=== PATIENT | female | born 1985 | race Caucasian/White ===

== ENCOUNTER 2017-08-12 12:35 | Emergency (ER) | payer MEDICAID ==
[~2017-08-12] VITALS: Ht 153.7 cm; Wt 63.0 kg
[~2017-08-12 12:35] MED LIST: ONDA4TAB12 PO
[2017-08-12 13:34] LABS: CLARITY,URINE Clear (Clear); COLOR,URINE Yellow (Yellow); GLUCOSE, URINE Negative (Neg); KETONES,URINE Negative (Neg); LEUKOCYTE ESTERASE ,URINE Negative (Neg); NITRITES, URINE Negative (Neg); OCCULT BLOOD,URINE Negative (Neg); PH,URINE 6.5 (4.8-8.0); PROTEIN,URINE Negative (Neg); UROBILINOGEN,URINE 0.2 E.U/dL (0.2-1.0)
[2017-08-12 13:36] LABS: URINE HCG POSITIVE (NEG)
[2017-08-12 13:38] LABS: UA COLLECTION TYPE NON-SPECIFIED
[2017-08-12 16:41] VITALS: BP 148/70
== END 2017-08-12 16:42 | disposition home or self-care (01) ==
LOC: ER 12:35
DX: O26.891 Other specified pregnancy related conditions, first trimester (principal); R10.9 Unspecified abdominal pain; F15.90 Other stimulant use, unspecified, uncomplicated; Z3A.10 10 weeks gestation of pregnancy; Z79.899 Other long term (current) drug therapy
CPT/HCPCS: 36415; 76801; 81003; 81025; 84702; 99285

== ENCOUNTER 2018-05-26 10:49 | Emergency (ER) | payer MEDICAID ==
[~2018-05-26] VITALS: Ht 152.4 cm; Wt 85.0 kg
[2018-05-26 10:58] VITALS: BP 122/81
[2018-05-26] MEDS ORDERED: HYDR-4383 PO (13:36)
[2018-05-26] MEDS ORDERED: ibuprofen tablet 400 MG TABLET PO ONE (13:40)
[2018-05-26] MEDS ORDERED: HYDROcodone/acetaminophen 10/325mg tab PO ONE (13:40)
== END 2018-05-26 14:36 | disposition home or self-care (01) ==
LOC: ER 10:50
DX: S82.892A Other fracture of left lower leg, initial encounter for closed fracture (principal); F17.200 Nicotine dependence, unspecified, uncomplicated; F15.90 Other stimulant use, unspecified, uncomplicated; Z79.899 Other long term (current) drug therapy; W22.8XXA Striking against or struck by other objects, initial encounter; Y93.89 Activity, other specified; Y92.89 Other specified places as the place of occurrence of the external cause; Y99.8 Other external cause status
CPT/HCPCS: 73610; 99284

== ENCOUNTER 2018-06-05 13:18 | Day surgery (SDC) | payer MEDICAID ==
[2018-06-04 09:43] LABS: BASOPHILS # (AUTO) 0.1 X10'3 (0-0.2); BASOPHILS % (AUTO) 0.7 % (0-1); EOSINOPHILS # (AUTO) 0.3 X10'3 (0-0.9); EOSINOPHILS % (AUTO) 2.6 % (0-6); LYMPHOCYTES # (AUTO) 1.7 X10'3 (1.1-4.8); LYMPHOCYTES % (AUTO) 16.5 % (21-51); MEAN CORPUSCULAR HEMOGLOBIN 30.4 PG (27.0-31.0); MEAN CORPUSCULAR HGB CONC 34.5 g/dL (33.0-36.5); MEAN CORPUSCULAR VOLUME 88.1 FL (78-98); MEAN PLATELET VOLUME 7.1 FL (7.4-10.4); MONOCYTES # (AUTO) 0.8 X10'3 (0-0.9); MONOCYTES % (AUTO) 7.3 % (2-12); NEUTROPHILS # (AUTO) 7.6 X10'3 (1.8-7.7); NEUTROPHILS % (AUTO) 72.9 % (42-75); PRE OP HEMATOCRIT 43.3 % (35.0-45.0); PRE OP PLATELET COUNT 449 X10'3 (140-440); RED BLOOD COUNT 4.92 X10'6 (4.20-5.60); RED CELL DISTRIBUTION WIDTH 14.5 % (11.5-14.5)
[2018-06-04 09:51] LABS: HCG SERUM QL NEGATIVE
[~2018-06-05] VITALS: Ht 152.4 cm; Wt 89.4 kg
[2018-06-05] VITALS (8 sets, daily range): BP systolic 121–146; BP diastolic 57–88
[~2018-06-05 13:18] MED LIST changes: +HYDR-4383 PO; -ONDA4TAB12 PO; +albuterol 2.5 MG/3 ML nebule NEB ONE; +cefazolin/dext.iso 2gm/100ml 100 ML IV ONE; +famotidine 20mg tablet PO ONE; +ringers solution, lacted 1,000 ML IV SCH; +vancomycin inj 1,500 MG in normal saline 300ml IV soln IV ONE
[2018-06-05] MEDS ORDERED: ringers solution, lacted 1,000 ML IV SCH (14:14)
[2018-06-05] MEDS ORDERED: labetalol 20mg/4ml (5mg/ml) syringe IV PRN (14:15)
[2018-06-05] MEDS ORDERED: hydrALAZINE 20mg/ml inj. IV PRN (14:15)
[2018-06-05] MEDS ORDERED: morphine 4 MG/ML inj SYRINge IV PRN ×2 (14:15)
[2018-06-05] MEDS ORDERED: ondansetron/PF 4mg/2ml inj IV PRN (14:15)
[2018-06-05] MEDS ORDERED: fentaNYL/PF 50MCG/1 ML 2ML syringe IV PRN ×2 (14:15)
[2018-06-05] MEDS ORDERED: ROPIVAcaine 0.5% (5mg/ml) 30ml vial ONE (14:28)
[2018-06-05] MEDS ORDERED: BUPIVAcaine/PF 2.5mg/ml (0.25%) 10ml vial ONE (14:30)
[2018-06-05] MEDS ORDERED: fentaNYL /PF 50mcg/ml 5ml ampule ONE (14:33)
[2018-06-05] MEDS ORDERED: MIDAZolam 5mg/5ml vial ONE (14:34)
[2018-06-05] MEDS ORDERED: LIDOcaine 1%/PF 5ML 10 MG/ML VIAL ONE (14:38)
[2018-06-05] MEDS ORDERED: ketorolac trometh. 30mg/ml inj. ONE ×2 (14:38→15:08)
[2018-06-05] MEDS ORDERED: sevoflurane 250ml liquid IH ONE (14:38)
[2018-06-05] MEDS ORDERED: midazolam 2 mg/2 ml injection IV PRN (14:40)
[2018-06-05] MEDS ORDERED: propofol inj 20 ML IV ONE (15:07)
[2018-06-05] MEDS ORDERED: dexamethasone sod phosphate 4mg/ml inj. ONE (15:08)
[2018-06-05] MEDS ORDERED: ondansetron/PF 4mg/2ml inj ONE (15:23)
--- NOTE | 2018-06-05 16:10 | NUR ---
Received from OR via bed, accompanied by Anesthesiologist. Report received. Initial physical assessment done and recorded.
--- NOTE | 2018-06-05 17:15 | NUR ---
Discharge criteria met, discharge instructions given, demonstrates verbal understanding. Discharged home in good condition.
== END 2018-06-05 17:15 | disposition home or self-care (01) ==
LOC: PAS 13:18
PROVIDERS: ATTEND Orthopaedic Surgery
DX: S82.62XA Displaced fracture of lateral malleolus of left fibula, initial encounter for closed fracture (principal); E66.01 Morbid (severe) obesity due to excess calories; F17.210 Nicotine dependence, cigarettes, uncomplicated; W01.0XXA Fall on same level from slipping, tripping and stumbling without subsequent striking against object, initial encounter; Y93.89 Activity, other specified; Y92.89 Other specified places as the place of occurrence of the external cause; Y99.8 Other external cause status; Z98.890 Other specified postprocedural states
CPT/HCPCS: 27792; 36415; 73610; 76000; 84703; 85025; A6222; A6449; C1713; J0690; J1100; J1885; J2001; J2250; J2405; J2704; J3010; J3370; J3490; A7000; J2795; J7120

== ENCOUNTER 2020-07-29 13:20 | Emergency (ER) | payer MEDICAID ==
[~2020-07-29] VITALS: Ht 152.4 cm; Wt 84.1 kg
[~2020-07-29 13:20] MED LIST changes: -albuterol 2.5 MG/3 ML nebule NEB ONE; -cefazolin/dext.iso 2gm/100ml 100 ML IV ONE; -famotidine 20mg tablet PO ONE; -ringers solution, lacted 1,000 ML IV SCH; -vancomycin inj 1,500 MG in normal saline 300ml IV soln IV ONE
[2020-07-29 13:40] VITALS: BP 96/75
== END 2020-07-29 16:20 | disposition home or self-care (01) ==
LOC: ER 13:21
DX: S81.811A Laceration without foreign body, right lower leg, initial encounter (principal); F15.90 Other stimulant use, unspecified, uncomplicated; Z72.89 Other problems related to lifestyle; Z79.899 Other long term (current) drug therapy; X58.XXXA Exposure to other specified factors, initial encounter; Y93.89 Activity, other specified; Y92.89 Other specified places as the place of occurrence of the external cause; Y99.8 Other external cause status
CPT/HCPCS: 12001; 99282